=== PATIENT | female | born 1970 | race American Indian/Alaskan Native ===

== ENCOUNTER 2016-11-22 15:37 | Emergency (ER) | payer SELFPAY ==
[2016-11-22 16:20] LABS: Basophils % (Auto) 0.4 % (0.0-1.8); Eosinophils % (Auto) 3.8 % (0.0-4.3); Hematocrit 34.8 % (30.3-42.9); Hemoglobin 11.4 gm/dl (10.1-14.3); Mean Corpuscular HGB Conc 33 % (30-34); Mean Corpuscular Hemoglobin 27 pg (28-32); Mean Corpuscular Volume 81 fl (79-97); Platelet Count 236 K/mm3 (140-440); Red Blood Count 4.29 M/mm3 (3.65-5.03); Red Cell Distribution Width 15.3 % (13.2-15.2); White Blood Count 6.3 K/mm3 (4.5-11.0)
[2016-11-22 16:37] LABS: Anion Gap 17 mmol/L; Blood Urea Nitrogen 10 mg/dL (7-17); Carbon Dioxide 24 mmol/L (22-30); Chloride 99.3 mmol/L (98-107); Glucose 109 mg/dL (65-100); Potassium 3.7 mmol/L (3.6-5.0); Sodium 137 mmol/L (137-145)
--- NOTE | 2016-11-22 16:41 | Emergency Department Report ---
ED Syncope HPI - General Chief Complaint: Syncope Stated Complaint: SYNCOPE Time Seen by Provider: 11/22/16 16:38 Source: patient - History of Present Illness Timing/Prior Episodes: no prior history Precipitating Factors: Positive: none Context: activity Loss of Consciousness: dazed Current Symptoms: back to normal - Related Data Allergies/Adverse Reactions: Allergies ibuprofen [From Motrin] Allergy (Verified 11/22/16 15:46) Unknown shellfish derived Allergy (Verified 11/22/16 15:46) Unknown ED Review of Systems ROS: Stated complaint: SYNCOPE Other details as noted in HPI Comment: All other systems reviewed and negative Neurological: headache Psychiatric: anxiety ED Past Medical Hx - Past Medical History Previous Medical History?: Yes Hx GERD: Yes Hx Psychiatric Treatment: Yes (Anxiety) - Surgical History Past Surgical History?: No - Social History Smoking Status: Never Smoker Substance Use Type: None ED Physical Exam - General Limitations: No Limitations General appearance: alert, in no apparent distress - Head Head exam: Present: atraumatic - Eye Eye exam: Present: normal appearance, PERRL, EOMI - ENT ENT exam: Present: normal exam, normal orophraynx - Neck Neck exam: Present: normal inspection - Respiratory Respiratory exam: Present: normal lung sounds bilaterally - Cardiovascular Cardiovascular Exam: Present: regular rate, normal rhythm - GI/Abdominal GI/Abdominal exam: Present: soft - Back Exam Back exam: Present: normal inspection - Neurological Exam Neurological exam: Present: alert, altered, oriented X3 - Psychiatric Psychiatric exam: Present: normal affect, normal mood - Skin Skin exam: Present: warm, dry ED Course Vital Signs 11/22/16 11/22/16 11/22/16 15:40 15:58 16:00 Temperature 98.0 F Pulse Rate 82 74 Respiratory 16 12 Rate Blood Pressure 148/79 148/79 Blood Pressure 140/84 [Left] O2 Sat by Pulse 98 Oximetry 11/22/16 11/22/16 11/22/16 16:15 16:30 16:37 Temperature Pulse Rate 76 76 Respiratory 14 19 18 Rate Blood Pressure 137/84 143/83 Blood Pressure [Left] O2 Sat by Pulse 98 100 Oximetry 11/22/16 11/22/16 11/22/16 17:14 17:15 17:30 Temperature Pulse Rate 76 76 79 Respiratory 14 18 11 L Rate Blood Pressure 145/82 145/82 139/85 Blood Pressure [Left] O2 Sat by Pulse 100 100 99 Oximetry 11/22/16 17:45 Temperature Pulse Rate 71 Respiratory 12 Rate Blood Pressure 144/84 Blood Pressure [Left] O2 Sat by Pulse 100 Oximetry ED Medical Decision Making - Lab Data Result diagrams: 11/22/16 16:06 11/22/16 16:06 Critical care attestation.: If time is entered above; I have spent that time in minutes in the direct care of this critically ill patient, excluding procedure time. ED Disposition Clinical Impression: Syncope Disposition: DC-01 TO HOME OR SELFCARE Is pt being admited?: No Does the pt Need Aspirin: No Condition: Stable Instructions: Syncope (ED) Referrals: PRIMARY CARE, [Primary Care Provider] - 3-5 Days Forms: Work/School Release Form(ED)
[2016-11-22] MEDS ORDERED: NACL 0.9% 1000 ML 1,000 ML IV ONE (16:46)
--- NOTE | 2016-11-22 17:42 | Cat Scan Report ---
FINAL REPORT EXAM: CT HEAD/BRAIN WO CON HISTORY: syncope TECHNIQUE: CT head without contrast PRIORS: None. FINDINGS: No acute intra-axial or extra-axial hemorrhage is identified. There is no evidence of midline shift or mass effect. The ventricles and sulci are within normal limits. Bethea-white matter differentiation is intact. No acute parenchymal abnormalities seen. Bony calvarium is grossly intact. Visualized portions of the mastoids and paranasal sinuses are unremarkable. IMPRESSION: Negative CT head
[2016-11-22 21:53] VITALS: BP 141/87
== END 2016-11-22 22:16 | disposition home or self-care (01) ==
LOC: ED 15:37
DX: R55 Syncope and collapse (principal); K21.9 Gastro-esophageal reflux disease without esophagitis; F41.9 Anxiety disorder, unspecified; Z91.013 Allergy to seafood; Z88.6 Allergy status to analgesic agent
CPT/HCPCS: 36415; 70450; 80048; 84484; 85025; 93005; 93010; 96360; 99285; J7030

== ENCOUNTER 2017-04-10 10:34 | Emergency (ER) | payer OTHER ==
[2017-04-10 11:54] LABS: Basophils % (Auto) 0.5 % (0.0-1.8); Eosinophils % (Auto) 5.1 % (0.0-4.3); Hemoglobin 12.4 gm/dl (10.1-14.3); Mean Corpuscular HGB Conc 32 % (30-34); Mean Corpuscular Hemoglobin 26 pg (28-32); Mean Corpuscular Volume 82 fl (79-97); Platelet Count 234 K/mm3 (140-440); Red Blood Count 4.75 M/mm3 (3.65-5.03); Red Cell Distribution Width 15.5 % (13.2-15.2); White Blood Count 6.5 K/mm3 (4.5-11.0)
[2017-04-10 12:09] LABS: Alanine Aminotransferase 9 units/L (7-56); Albumin 3.9 g/dL (3.9-5); Albumin/Globulin Ratio 1.2 %; Alkaline Phosphatase 43 units/L (35-129); Anion Gap 20 mmol/L; BUN/Creatinine Ratio 14; Blood Urea Nitrogen 10 mg/dL (7-17); Calcium 8.9 mg/dL (8.4-10.2); Carbon Dioxide 23 mmol/L (22-30); Chloride 100.6 mmol/L (98-107); Glucose 122 mg/dL (65-100); Lipase 20 units/L (13-60); Potassium 4.1 mmol/L (3.6-5.0); Sodium 139 mmol/L (137-145); Total Protein 7.2 g/dL (6.3-8.2)
[2017-04-10 12:24] LABS: Bilirubin,Urine NEG (Negative); Blood,Urine NEG (Negative); Ketones,Urine NEG (Negative); Leukocyte Esterase,Urine NEG (Negative); Nitrite,Urine NEG (Negative); Protein,Urine <15 mg/dL mg/dL (Negative); Urobilinogen,Urine < 2.0 mg/dL (<2.0)
[2017-04-10 12:34] LABS: WBC,Urine < 1.0 /HPF (0.0-6.0)
[2017-04-10 13:12] VITALS: BP 117/73
[2017-04-10] MEDS ORDERED: TYLENOL PO ONE (13:20)
--- NOTE | 2017-04-10 13:22 | Emergency Department Report ---
ED General Adult HPI - General Chief complaint: Abdominal Pain Stated complaint: BODY ACHES,WEAK Time Seen by Provider: 04/10/17 12:58 Source: patient Mode of arrival: Ambulatory Limitations: No Limitations - History of Present Illness Initial comments: This is a 47-year-old female who is previously unknown to this provider, presented to the ER with myalgias, weakness, suggestive fever, congestion. Symptoms do not radiate anywhere, they're intermittent, they do not have exacerbating or relieving factors. -: Gradual Location: face, mouth, back, left, right, upper extremity, lower extremity Consistency: constant Improves with: none Worsens with: none Associated Symptoms: cough, fever/chills, loss of appetite, malaise, weakness. denies: confusion, diaphoresis, nausea/vomiting - Related Data Previous Rx's Medication Instructions Recorded Last Taken Type Acetaminophen [Tylenol Arthritis] 650 mg PO Q6HR PRN #30 tablet.er 04/10/17 Unknown Rx Benzonatate [Tessalon Perles] 100 mg PO Q8HR PRN #30 capsule 04/10/17 Unknown Rx Ondansetron [Zofran Odt] 4 mg PO Q8HR PRN #20 tab.rapdis 04/10/17 Unknown Rx Allergies Allergy/AdvReac Type Severity Reaction Status Date / Time ibuprofen [From Motrin] Allergy Unknown Verified 11/22/16 15:46 shellfish derived Allergy Unknown Verified 11/22/16 15:46 ED Review of Systems ROS: Stated complaint: BODY ACHES,WEAK Other details as noted in HPI ED Past Medical Hx - Past Medical History Previous Medical History?: Yes Hx GERD: Yes Hx Psychiatric Treatment: Yes (Anxiety) - Surgical History Past Surgical History?: No - Social History Smoking Status: Never Smoker Substance Use Type: None - Medications Home Medications: Home Medications Medication Instructions Recorded Confirmed Last Taken Type Acetaminophen [Tylenol Arthritis] 650 mg PO Q6HR PRN #30 tablet.er 04/10/17 Unknown Rx Benzonatate [Tessalon Perles] 100 mg PO Q8HR PRN #30 capsule 04/10/17 Unknown Rx Ondansetron [Zofran Odt] 4 mg PO Q8HR PRN #20 tab.rapdis 04/10/17 Unknown Rx ED Physical Exam - General Limitations: No Limitations General appearance: alert, in no apparent distress - Head Head exam: Present: atraumatic, normocephalic - Eye Eye exam: Present: normal appearance, EOMI. Absent: nystagmus - ENT ENT exam: Present: normal exam, normal orophraynx, mucous membranes moist, normal external ear exam - Neck Neck exam: Present: normal inspection, full ROM - Respiratory Respiratory exam: Present: normal lung sounds bilaterally. Absent: respiratory distress - Cardiovascular Cardiovascular Exam: Present: regular rate, normal rhythm, normal heart sounds. Absent: systolic murmur, diastolic murmur, rubs, gallop - GI/Abdominal GI/Abdominal exam: Present: soft, normal bowel sounds. Absent: distended, tenderness, guarding, rebound, rigid, pulsatile mass - Extremities Exam Extremities exam: Present: normal inspection, full ROM, normal capillary refill. Absent: pedal edema, joint swelling, calf tenderness - Back Exam Back exam: Present: normal inspection, full ROM. Absent: tenderness, CVA tenderness (R), CVA tenderness (L), muscle spasm, paraspinal tenderness, vertebral tenderness - Neurological Exam Neurological exam: Present: alert (visual acuity intact to finger counting, color perception, reading at a close distance), oriented X3, normal gait ( normal gait, normal tandem gait, negative pronator drift, negative Romberg exam. Normal heel to pin[place].), other (Extraocular movements intact. Tongue midline. No facial droop. Facial sensation intact to light touch in the V1, V2 , V3 distribution bilaterally. 5 and 5 strength in 4 extremities.. Sensation is intact to light touch in 4 extremities.). Absent: motor sensory deficit - Psychiatric Psychiatric exam: Present: normal affect, normal mood - Skin Skin exam: Present: warm, dry, intact, normal color. Absent: rash ED Course Vital Signs 04/10/17 04/10/17 11:21 13:11 Temperature 99.0 F Pulse Rate 86 82 Respiratory 18 16 Rate Blood Pressure 149/86 Blood Pressure 117/73 [Left] O2 Sat by Pulse 97 97 Oximetry ED Medical Decision Making - Lab Data Result diagrams: 04/10/17 11:38 04/10/17 11:38 Vital Signs 04/10/17 04/10/17 11:21 13:11 Temperature 99.0 F Pulse Rate 86 82 Respiratory 18 16 Rate Blood Pressure 149/86 Blood Pressure 117/73 [Left] O2 Sat by Pulse 97 97 Oximetry Lab Results 04/10/17 04/10/17 04/10/17 Range/Units 11:38 11:38 11:38 WBC 6.5 (4.5-11.0) K/mm3 RBC 4.75 (3.65-5.03) M/mm3 Hgb 12.4 (10.1-14.3) gm/dl Hct 39.0 (30.3-42.9) % MCV 82 (79-97) fl MCH 26 L (28-32) pg MCHC 32 (30-34) % RDW 15.5 H (13.2-15.2) % Plt Count 234 (140-440) K/mm3 Lymph % (Auto) 50.1 H (13.4-35.0) % [place] % (Auto) 4.7 (0.0-7.3) % Eos % (Auto) 5.1 H (0.0-4.3) % Baso % (Auto) 0.5 (0.0-1.8) % Lymph # 3.3 (1.2-5.4) K/mm3 [place] # 0.3 (0.0-0.8) K/mm3 Eos # 0.3 (0.0-0.4) K/mm3 Baso # 0.0 (0.0-0.1) K/mm3 Seg Neutrophils % 39.6 L (40.0-70.0) % Seg Neutrophils # 2.6 (1.8-7.7) K/mm3 Sodium 139 (137-145) mmol/L Potassium 4.1 (3.6-5.0) mmol/L Chloride 100.6 (98-107) mmol/L Carbon Dioxide 23 (22-30) mmol/L Anion Gap 20 mmol/L BUN 10 (7-17) mg/dL Creatinine 0.7 (0.7-1.2) mg/dL Estimated GFR > 60 ml/min BUN/Creatinine Ratio 14 % Glucose 122 H (65-100) mg/dL Calcium 8.9 (8.4-10.2) mg/dL Total Bilirubin 0.30 (0.1-1.2) mg/dL AST 12 (5-40) units/L ALT 9 (7-56) units/L Alkaline Phosphatase 43 (35-129) units/L Total Protein 7.2 (6.3-8.2) g/dL Albumin 3.9 (3.9-5) g/dL Albumin/Globulin Ratio 1.2 % Lipase 20 (13-60) units/L HCG, Qual Negative (Negative) Urine Color (Yellow) Urine Turbidity (Clear) Urine pH (5.0-7.0) Ur Specific Burns (1.003-1.030) Urine Protein (Negative) mg/dL Urine Glucose (UA) (Negative) mg/dL Urine Ketones (Negative) mg/dL Urine Blood (Negative) Urine Nitrite (Negative) Urine Bilirubin (Negative) Urine Urobilinogen (<2.0) mg/dL Ur Leukocyte Esterase (Negative) Urine WBC (Auto) (0.0-6.0) /HPF Urine RBC (Auto) (0.0-6.0) /HPF U Epithel Cells (Auto) (0-13.0) /HPF 04/10/ Range/Units 12:05 WBC (4.5-11.0) K/mm3 RBC (3.65-5.03) M/mm3 Hgb (10.1-14.3) gm/dl Hct (30.3-42.9) % MCV (79-97) fl MCH (28-32) pg MCHC (30-34) % RDW (13.2-15.2) % Plt Count (140-440) K/mm3 Lymph % (Auto) (13.4-35.0) % [place] % (Auto) (0.0-7.3) % Eos % (Auto) (0.0-4.3) % Baso % (Auto) (0.0-1.8) % Lymph # (1.2-5.4) K/mm3 [place] # (0.0-0.8) K/mm3 Eos # (0.0-0.4) K/mm3 Baso # (0.0-0.1) K/mm3 Seg Neutrophils % (40.0-70.0) % Seg Neutrophils # (1.8-7.7) K/mm3 Sodium (137-145) mmol/L Potassium (3.6-5.0) mmol/L Chloride (98-107) mmol/L Carbon Dioxide (22-30) mmol/L Anion Gap mmol/L BUN (7-17) mg/dL Creatinine (0.7-1.2) mg/dL Estimated GFR ml/min BUN/Creatinine Ratio % Glucose (65-100) mg/dL Calcium (8.4-10.2) mg/dL Total Bilirubin (0.1-1.2) mg/dL AST (5-40) units/L ALT (7-56) units/L Alkaline Phosphatase (35-129) units/L Total Protein (6.3-8.2) g/dL Albumin (3.9-5) g/dL Albumin/Globulin Ratio % Lipase (13-60) units/L HCG, Qual (Negative) Urine Color Yellow (Yellow) Urine Turbidity Clear (Clear) Urine pH 8.0 H (5.0-7.0) Ur Specific Burns 1.012 (1.003-1.030) Urine Protein <15 mg/dl (Negative) mg/dL Urine Glucose (UA) Neg (Negative) mg/dL Urine Ketones Neg (Negative) mg/dL Urine Blood Neg (Negative) Urine Nitrite Neg (Negative) Urine Bilirubin Neg (Negative) Urine Urobilinogen < 2.0 (<2.0) mg/dL Ur Leukocyte Esterase Neg (Negative) Urine WBC (Auto) < 1.0 (0.0-6.0) /HPF Urine RBC (Auto) 1.0 (0.0-6.0) /HPF U Epithel Cells (Auto) 9.0 (0-13.0) /HPF - Radiology Data Radiology results: report reviewed, image reviewed X-ray the chest is negative for acute disease - Medical Decision Making Differential diagnosis, including but not limited to: Influenza, pneumonia, influenza-like illness, urinary tract infection, sinusitis Assessment and plan: 47-year-old female with nonspecific subjective febrile illness, myalgias, arthralgias, general malaise. In the ER, the patient has reassuring vital signs, has a benign abdominal examination, has a normal neurologic examination, and is noted multiple times to be sleeping in her stretcher without difficulty. She walks without difficulty. Influenza screen is negative for type A and B, patient does not have significant cofort of medical comorbidity, and she is afebrile with reassuring vital signs in the ER. She is unfortunately allergic and intolerant of NSAIDs. She will be discharged with acetaminophen and as needed cough medication. Return precautions are reviewed. Critical care attestation.: If time is entered above; I have spent that time in minutes in the direct care of this critically ill patient, excluding procedure time. ED Disposition Clinical Impression: Influenza-like illness Disposition: DC-01 TO HOME OR SELFCARE Is pt being admited?: No Does the pt Need Aspirin: No Condition: Stable Instructions: Viral Syndrome (ED) Additional Instructions: Take the pain medication, cough medication, nausea medication as needed/ directed. Follow up with the primary care doctor within the next 7-10 days. Symptoms most likely coming from influenza-like illness/viral syndrome. This is typically a self-limiting condition. Drink plenty of fluids. Return to the ER right away with new pain, worsening pain, migration of pain, fevers, chills, lethargy, irritability, projectile vomiting, change in mental status, confusion , inability to tolerate liquid feeds. Prescriptions: Acetaminophen [Tylenol Arthritis] 650 mg PO Q6HR PRN #30 tablet.er PRN Reason: Pain Benzonatate [Tessalon Perles] 100 mg PO Q8HR PRN #30 capsule PRN Reason: Cough Ondansetron [Zofran Odt] 4 mg PO Q8HR PRN #20 tab.rapdis PRN Reason: Nausea Referrals: PRIMARY CAREMD [Primary Care Provider] - 3-5 Days VENUS BENTON MD [Staff Physician] - 3-5 Days [facility] [Provider Group] - 3-5 Days Forms: Work/School Release Form(ED)
--- NOTE | 2017-04-10 15:13 | XRay Report ---
ROUTINE CHEST, TWO VIEWS: HISTORY: Cough, fever. The trachea, heart, mediastinal contour, lung gardner and bony thorax are unremarkable. IMPRESSION: Unremarkable chest x-ray.
== END 2017-04-10 16:11 | disposition home or self-care (01) ==
LOC: ED 10:34
DX: J11.1 Influenza due to unidentified influenza virus with other respiratory manifestations (principal); M79.1 Myalgia; K21.9 Gastro-esophageal reflux disease without esophagitis; Z88.6 Allergy status to analgesic agent; Z91.013 Allergy to seafood
CPT/HCPCS: 36415; 71020; 80053; 81001; 83690; 84703; 85025; 87400; 99284

== ENCOUNTER 2017-10-11 00:16 | Emergency (ER) | payer SELFPAY ==
[2017-10-11] MEDS ORDERED: NORCO 10/325 PO ONE (02:54)
--- NOTE | 2017-10-11 03:10 | Emergency Department Report ---
ED Syncope HPI - General Chief Complaint: Syncope Stated Complaint: SYNCOPAL EPISODE Time Seen by Provider: 10/11/17 02:30 - History of Present Illness Initial Comments: Patient had an syncopal episode while she was [place] as a hazardous [place] 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 She reports that she had not eaten very much today, had not drunk very much, felt hot while she was at work, but that she was able to cope and manage until she felt a pull in her back. She has a past history of a bulging lumbar disc, but has not had any prior surgery. She has significant discomfort in her lower to mid back, and she also has a moderate headache, but she has good strength in all of her extremities, she has no chest pain, no abdominal pain, and no other acute symptoms. She did have an episode of syncope approximately a year ago, but evaluation was stable, and she was discharged home uneventfully, with no recurrences until today. Timing/Prior Episodes: single episode today, remote history Precipitating Factors: Positive: pain (lower back) Context: activity (while at work, straining to lift heavy luggage) Loss of Consciousness: unsure Current Symptoms: injury (left lower back pain, radiating into left leg). denies: chest pain, loss of bladder control, loss of bowel control, weakness - Related Data Allergies/Adverse Reactions: Allergies ibuprofen [From Motrin] Allergy (Verified 11/22/16 15:46) Unknown shellfish derived Allergy (Verified 11/22/16 15:46) Unknown Home Medications: Ambulatory Orders Acetaminophen [Tylenol Arthritis] 650 mg PO Q6HR PRN #30 tablet.er 04/10/17 Benzonatate [Tessalon Perles] 100 mg PO Q8HR PRN #30 capsule 04/10/17 Ondansetron [Zofran Odt] 4 mg PO Q8HR PRN #20 tab.rapdis 04/10/17 Cyclobenzaprine HCl [Flexeril 5 MG TAB] 5 mg PO TID #30 tab 10/11/17 HYDROcodone/APAP 7.5-325 [[place] 7.5/325] 1 each PO Q6HR PRN #20 tablet 10/11/17 predniSONE [Deltasone] 20 mg PO QDAY #10 tab 10/11/17 ED Review of Systems ROS: Stated complaint: SYNCOPAL EPISODE Other details as noted in HPI Comment: All other systems reviewed and negative Constitutional: denies: chills, diaphoresis, fever, malaise, weakness ENT: denies: ear pain, throat pain Respiratory: denies: cough, shortness of breath, wheezing Cardiovascular: syncope. denies: chest pain, palpitations Endocrine: no symptoms reported Gastrointestinal: denies: abdominal pain, nausea, vomiting Musculoskeletal: back pain (left lower back with radiculopathy left leg) Neurological: headache. denies: weakness, numbness Psychiatric: denies: anxiety, depression Hematological/Lymphatic: denies: easy bleeding, easy bruising ED Past Medical Hx - Past Medical History Previous Medical History?: Yes Hx GERD: Yes Hx Psychiatric Treatment: Yes (Anxiety) Additional medical history: syncope since middle school - Surgical History Past Surgical History?: No - Social History Smoking Status: Never Smoker Substance Use Type: None - Medications Home Medications: Home Medications Medication Instructions Recorded Confirmed Last Taken Type Acetaminophen [Tylenol Arthritis] 650 mg PO Q6HR PRN #30 tablet.er 04/10/17 Unknown Rx Benzonatate [Tessalon Perles] 100 mg PO Q8HR PRN #30 capsule 04/10/17 Unknown Rx Ondansetron [Zofran Odt] 4 mg PO Q8HR PRN #20 tab.rapdis 04/10/17 Unknown Rx Cyclobenzaprine HCl [Flexeril 5 MG 5 mg PO TID #30 tab 10/11/17 Unknown Rx TAB] HYDROcodone/APAP 7.5-325 [[place] 1 each PO Q6HR PRN #20 tablet 10/11/17 Unknown Rx 7.5/325] predniSONE [Deltasone] 20 mg PO QDAY #10 tab 10/11/17 Unknown Rx ED Physical Exam - General Limitations: No Limitations General appearance: alert, in distress (persistent left lower back discomfort) - Head Head exam: Present: atraumatic, normocephalic - Eye Eye exam: Present: PERRL - Neck Neck exam: Present: normal inspection. Absent: tenderness, meningismus - Respiratory Respiratory exam: Present: normal lung sounds bilaterally - Cardiovascular Cardiovascular Exam: Present: regular rate, normal heart sounds. Absent: systolic murmur, diastolic murmur - GI/Abdominal GI/Abdominal exam: Present: soft. Absent: tenderness, guarding, rebound - Rectal Rectal exam: Present: deferred - Extremities Exam Extremities exam: Present: normal inspection. Absent: tenderness - Back Exam Back exam: Present: tenderness (left paralumbar soft tissue), paraspinal tenderness (left paralumbar). Absent: CVA tenderness (R), CVA tenderness (L), vertebral tenderness - Neurological Exam Neurological exam: Present: alert, oriented X3, CN II-XII intact. Absent: motor sensory deficit - Psychiatric Psychiatric exam: Present: normal affect, normal mood - Skin Skin exam: Present: warm, dry ED Course Vital Signs 10/11/17 10/11/17 10/11/17 00:44 01:00 02:00 Temperature 97.9 F Pulse Rate 77 77 76 Respiratory 15 18 18 Rate Blood Pressure 136/84 127/81 125/86 Blood Pressure 136/84 [Left] O2 Sat by Pulse 99 99 99 Oximetry ED Medical Decision Making - EKG Data -: EKG Interpreted by Me EKG shows normal: sinus rhythm, axis (normal QRS axis of 29), intervals, QRS complexes (normal QRS complexes), ST-T waves (nonspecific ST-T wave changes) - EKG Data When compared to previous EKG there are: no significant change - Radiology Data interpreted by me: Chest x-ray shows no acute cardiopulmonary abnormality, with clear lung gardner bilaterally, heart size is unremarkable, no pulmonary vascular congestion - Medical Decision Making Patient has had a syncopal episode as a result of an acute spasm of pain while she was physically exertional at her job. Furthermore, this is compounded by relative dehydration, and not having eaten well during the day. EKG is unremarkable, shows no cardiac irregularities, no rhythm irregularities, and no changes from prior tracing from 11/22/2016. She has considerable discomfort in her left lower back, with left radicular symptoms into her left leg. She also has a headache, but this is global, there are no acute neurologic findings. Pain episode is likely a proximate cause of patient's reflex or a vasovagal syncopal episode, which has resolved. She'll be treated symptomatically with rest, analgesics, and given sufficient time off from work in order to cover. - Differential Diagnosis syncopal episode, vasovagal reaction, cardiac syncope, pain related Critical Care Time: No Critical care attestation.: If time is entered above; I have spent that time in minutes in the direct care of this critically ill patient, excluding procedure time. ED Disposition Clinical Impression: Low back pain, Left lumbar radiculopathy Syncopal episodes Qualifiers: Syncope type: vasovagal syncope Qualified Code(s): R55 - Syncope and collapse Disposition: DC- TO HOME OR SELFCARE Is pt being admited?: No Does the pt Need Aspirin: No Condition: Stable Instructions: Syncope (ED), Acute Low Back Pain (ED), Lumbar Radiculopathy (ED) Additional Instructions: Unit fainted today as a result of exacerbation of low back pain, and you're probably inflamed or disc in your lower back. We're treating this with rest, analgesics with hydrocodone, and muscle relaxants , Flexeril. We have released her from work for the next 5 days, continue should have repeat examination by her doctor within that time to see how you're doing, and to determine additional needs. Light duty will be recommended once she returned to work for the next week or 2. Prescriptions: Cyclobenzaprine HCl [Flexeril 5 MG TAB] 5 mg PO TID #30 tab HYDROcodone/APAP 7.5-325 [[place] 7.5/325] 1 each PO Q6HR PRN #20 tablet PRN Reason: Pain predniSONE [Deltasone] 20 mg PO QDAY #10 tab Referrals: NAWAF ORTEGA MD [Primary Care Provider] - 3-5 Days Forms: Work/School Release Form(ED) Time of Disposition: 04:10
[2017-10-11 03:19] LABS: Basophils # (Auto) 0.1 K/mm3 (0.0-0.1); Basophils % (Auto) 1.1 % (0.0-1.8); Eosinophils # (Auto) 0.3 K/mm3 (0.0-0.4); Eosinophils % (Auto) 3.5 % (0.0-4.3); Hematocrit 34.4 % (30.3-42.9); Hemoglobin 11.7 gm/dl (10.1-14.3); Lymphocytes # (Auto) 3.6 K/mm3 (1.2-5.4); Lymphocytes % (Auto) 44.4 % (13.4-35.0); Mean Corpuscular HGB Conc 34 % (30-34); Mean Corpuscular Hemoglobin 27 pg (28-32); Mean Corpuscular Volume 79 fl (79-97); Monocytes # (Auto) 0.6 K/mm3 (0.0-0.8); Monocytes % (Auto) 7.6 % (0.0-7.3); Platelet Count 273 K/mm3 (140-440); Red Blood Count 4.33 M/mm3 (3.65-5.03); Red Cell Distribution Width 15.4 % (13.2-15.2)
[2017-10-11 04:02] LABS: BUN/Creatinine Ratio 14; Blood Urea Nitrogen 11 mg/dL (7-17); Calcium 9.4 mg/dL (8.4-10.2); Hemolysis Index 0
[2017-10-11 04:15] VITALS: BP 144/84
[2017-10-11] MEDS ORDERED: DELTASONE PO ONE (04:18)
--- NOTE | 2017-10-13 14:26 | XRay Report ---
FINAL REPORT EXAM: XR CHEST 1V AP HISTORY: chest pain, syncope TECHNIQUE: AP portable view(s) of the chest obtained. PRIORS: None. FINDINGS: No mediastinal shift. Cardiac silhouette is not enlarged. No pneumothorax or effusion. Linear bibasilar atelectasis/scarring. No acute skeletal finding. IMPRESSION: No acute pulmonary finding.
== END 2017-10-11 05:00 | disposition home or self-care (01) ==
LOC: ED 00:16
DX: M54.16 Radiculopathy, lumbar region (principal); M54.5 Low back pain; R55 Syncope and collapse; K21.9 Gastro-esophageal reflux disease without esophagitis
CPT/HCPCS: 36415; 71045; 80048; 85025; 93005; 93010; 99284; J7512

== ENCOUNTER 2018-01-02 20:50 | Emergency (ER) | payer SELFPAY ==
[2018-01-03] MEDS ORDERED: TYLENOL #3 PO ONE (00:34)
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
[2018-01-03 03:38] VITALS: BP 158/90
== END 2018-01-03 03:10 | disposition home or self-care (01) ==
LOC: ED 20:50
DX: S39.012A Strain of muscle, fascia and tendon of lower back, initial encounter (principal); S16.1XXA Strain of muscle, fascia and tendon at neck level, initial encounter; K21.9 Gastro-esophageal reflux disease without esophagitis; F41.9 Anxiety disorder, unspecified; Z91.013 Allergy to seafood; Z88.6 Allergy status to analgesic agent; V43.62XA Car passenger injured in collision with other type car in traffic accident, initial encounter; Y93.89 Activity, other specified; Y99.8 Other external cause status; Y92.410 Unspecified street and highway as the place of occurrence of the external cause
CPT/HCPCS: 72040; 72100; 99283

== ENCOUNTER 2021-07-11 18:41 | Emergency (ER) | payer SELFPAY ==
[2021-07-11 19:34] VITALS: BP 128/84
[2021-07-11 21:07] LABS: Mucus,Urine FEW /HPF
[2021-07-11 21:09] LABS: HCG Qualitative,Urine Negative (Negative)
[2021-07-11 21:12] LABS: Color,Urine Yellow (Yellow)
[2021-07-11 21:13] LABS: Bilirubin,Urine Negative (Negative); Blood,Urine Small (Negative); Protein,Urine <15 mg/dL mg/dL (Negative); Urobilinogen,Urine < 2.0 mg/dL (<2.0)
--- NOTE | 2021-07-11 21:15 | Emergency Department Report ---
ED Female HPI - General Chief complaint: Abdominal Pain Stated complaint: RT SIDE/PELVIC PAIN Source: patient Mode of arrival: Ambulatory Limitations: No Limitations - History of Present Illness Initial comments: 51-year-old female presents to the ED complaining low back pain radiating to the pelvic area with urinary frequency ,dysuria and urgency. Patient is alert and oriented x3. No acute distress noted .No ill appearance noted. Patient denies any nausea /vomiting or diarrhea. Patient states taking Azo across the counter without any relief. Patient states pain is currently 8 out of 10 at present. Severity scale (0 -10): 8 Associated Symptoms: denies other symptoms - Related Data Previous Rx's Medication Instructions Recorded Last Taken Type Acetaminophen [Tylenol Arthritis] 650 mg PO Q6HR PRN #30 tablet.er 04/10/17 Unknown Rx Benzonatate [Tessalon Perles] 100 mg PO Q8HR PRN #30 capsule 04/10/17 Unknown Rx Ondansetron [Zofran Odt] 4 mg PO Q8HR PRN #20 tab.rapdis 04/10/17 Unknown Rx Cyclobenzaprine HCl [Flexeril 5 MG 5 mg PO TID #30 tab 10/11/17 Unknown Rx TAB] HYDROcodone/APAP 7.5-325 [[place] 1 each PO Q6HR PRN #20 tablet 10/11/17 Unknown Rx 7.5/325] predniSONE [Deltasone] 20 mg PO QDAY #10 tab 10/11/17 Unknown Rx Acetaminophen [Tylenol Extra 1,000 mg PO QID PRN #60 tablet 01/03/18 Unknown Rx Strength] Cyclobenzaprine [Flexeril] 10 mg PO BID PRN #20 tablet 01/03/18 Unknown Rx Hyoscyamine Subl [Levsin Sl 0.125 0.125 mg SL Q6HR PRN 4 Days #20 tab 07/11/21 Unknown Rx TAB] Sulfamethoxazole/Trimethoprim 1 each PO BID 10 Days #20 tab 07/11/21 Unknown Rx [Bactrim DS TAB] Allergies Allergy/AdvReac Type Severity Reaction Status Date / Time ibuprofen [From Motrin] Allergy Unknown Verified 11/22/16 15:46 shellfish derived Allergy Unknown Verified 11/22/16 15:46 ED Review of Systems ROS: Stated complaint: RT SIDE/PELVIC PAIN Other details as noted in HPI Constitutional: denies: chills, fever Eyes: denies: eye pain, eye discharge, vision change ENT: denies: ear pain, throat pain Respiratory: denies: cough, shortness of breath, wheezing Cardiovascular: denies: chest pain, palpitations Endocrine: no symptoms reported Gastrointestinal: denies: abdominal pain, nausea, diarrhea Genitourinary: urgency, dysuria. denies: discharge Musculoskeletal: denies: back pain, joint swelling, arthralgia Skin: denies: rash, lesions Neurological: denies: headache, weakness, paresthesias Psychiatric: denies: anxiety, depression Hematological/Lymphatic: denies: easy bleeding, easy bruising ED Past Medical Hx - Past Medical History Previous Medical History?: Yes Hx GERD: Yes Hx Psychiatric Treatment: Yes (Anxiety) Additional medical history: syncope since middle school. Fibroids - Surgical History Past Surgical History?: No - Social History Smoking Status: Unknown if ever smoked - Medications Home Medications: Home Medications Medication Instructions Recorded Confirmed Last Taken Type Acetaminophen [Tylenol Arthritis] 650 mg PO Q6HR PRN #30 tablet.er 04/10/17 Unknown Rx Benzonatate [Tessalon Perles] 100 mg PO Q8HR PRN #30 capsule 04/10/17 Unknown Rx Ondansetron [Zofran Odt] 4 mg PO Q8HR PRN #20 tab.rapdis 04/10/17 Unknown Rx Cyclobenzaprine HCl [Flexeril 5 MG 5 mg PO TID #30 tab 10/11/17 Unknown Rx TAB] HYDROcodone/APAP 7.5-325 [[place] 1 each PO Q6HR PRN #20 tablet 10/11/17 Unknown Rx 7.5/325] predniSONE [Deltasone] 20 mg PO QDAY #10 tab 10/11/17 Unknown Rx Acetaminophen [Tylenol Extra 1,000 mg PO QID PRN #60 tablet 01/03/18 Unknown Rx Strength] Cyclobenzaprine [Flexeril] 10 mg PO BID PRN #20 tablet 01/03/18 Unknown Rx Hyoscyamine Subl [Levsin Sl 0.125 0.125 mg SL Q6HR PRN 4 Days #20 tab 07/11/21 Unknown Rx TAB] Sulfamethoxazole/Trimethoprim 1 each PO BID 10 Days #20 tab 07/11/21 Unknown Rx [Bactrim DS TAB] ED Physical Exam - General Limitations: No Limitations General appearance: alert, in no apparent distress - Head Head exam: Present: atraumatic, normocephalic - Eye Eye exam: Present: normal appearance - ENT ENT exam: Present: mucous membranes moist - Neck Neck exam: Present: normal inspection - Respiratory Respiratory exam: Present: normal lung sounds bilaterally. Absent: respiratory distress - Cardiovascular Cardiovascular Exam: Present: regular rate, normal rhythm. Absent: systolic murmur, diastolic murmur, rubs, gallop - GI/Abdominal GI/Abdominal exam: Present: soft, normal bowel sounds - Extremities Exam Extremities exam: Present: normal inspection - Back Exam Back exam: Present: normal inspection - Neurological Exam Neurological exam: Present: alert, oriented X3 - Psychiatric Psychiatric exam: Present: normal affect, normal mood - Skin Skin exam: Present: warm, dry, intact, normal color. Absent: rash ED Course Vital Signs 07/11/21 07/11/21 19:29 21:50 Temperature 98.8 F Pulse Rate 74 Respiratory 16 18 Rate Blood Pressure 128/84 [Right] O2 Sat by Pulse 99 Oximetry ED Medical Decision Making - Lab Data Result diagrams: 07/11/21 21:42 07/11/21 21:42 - Radiology Data [facility] [address] [place] [address] Cat Scan Report Signed Patient: KAREEN BARCLAY MR#: [id number] : 1970 Acct:[id number] Age/Sex: 51 / F ADM Date: 07/11/21 Loc: ED Attending Dr: Ordering Physician: BIENVENIDO HONEYCUTT Date of Service: 07/11/21 Procedure(s): CT abdomen pelvis wo con Accession Number(s): [id number] cc: BIENVENIDO HONEYCUTT CT ABDOMEN AND PELVIS WITHOUT CONTRAST INDICATION / CLINICAL INFORMATION: Pt complains of "Generalized" abdominal pain. TECHNIQUE: Axial CT images were obtained through the abdomen and pelvis without IV contrast. All CT scans at this location are performed using CT dose reduction for ALARA by means of automated exposure control. COMPARISON: None available. FINDINGS: LOWER CHEST: No significant abnormality LIVER: No significant abnormality GALLBLADDER/BILIARY TREE: No significant abnormality PANCREAS: No significant abnormality SPLEEN: No significant abnormality ADRENALS: No significant abnormality KIDNEYS / URETER: No significant abnormality URINARY BLADDER: Bladder is partially decompressed, though grossly unremarkable. REPRODUCTIVE ORGANS: The uterus is enlarged and heterogeneous, most consistent with fibroid disease. No suspicious adnexal mass. STOMACH / BOWEL: Small hiatal hernia. Small bowel is normal in caliber. The colon is unremarkable. The appendix is normal in caliber. LYMPH NODES: No significant adenopathy. VASCULATURE: No significant abnormality. OTHER: No free air, free fluid, or focal fluid collection is identified. Small fat-containing left internal hernia. SKELETAL SYSTEM: No acute osseous findings. IMPRESSION: 1. No acute abnormality of the abdomen or pelvis. 2. Enlarged fibroid uterus. 3. Other incidental findings as above. Signer Name: Rosa M Owens MD Signed: 07/11/2021 10:21 PM Workstation Name: [id number] Transcribed By: TASHIA Dictated By: ROSA M OWENS MD Electronically Authenticated By: ROSA M OWENS MD Signed Date/Time: 07/11/212220 - Medical Decision Making 51-year-old female presents to the ED complaining low back pain radiating to the pelvic area with urinary frequency ,dysuria and urgency. Patient is alert and oriented x3. No acute distress noted .No ill appearance noted. Patient denies any nausea /vomiting or diarrhea. Patient states taking Azo across the counter without any relief. Patient states pain is currently 8 out of 10 at present. Urinalysis showed moderate hematuria. CT of the abdomen pelvis ordered shows uterine fibroid. Patient will be treated based on symptoms for acute urinary tract infection and to follow-up with [facility]. Rechecked the patient is resting quietly quietly and comfortable and feeling better. I discussed the results of diagnostic study, my clinical impression and the plan for further treatment with the patient. Patient agrees with plan and discharge at this present time. All question addressed. I have given the patient instruction regarding a diagnosis ,expectation ,follow- up and return precaution. I explained to the patient that emergent condition may arise and to return to the ED for new worsen and any new persisting condition. I have explained the importance of following up with the primary care physician or referral physician listed below has instructed. The patient verbalized understanding of discharge instruction. Critical care attestation.: If time is entered above; I have spent that time in minutes in the direct care of this critically ill patient, excluding procedure time. ED Disposition Clinical Impression: Acute UTI (urinary tract infection), Fibroid Disposition: HOME / SELF CARE / HOMELESS Is pt being admited?: No Does the pt Need Aspirin: No Condition: Stable Instructions: Abdominal Pain (ED), Antibiotic Medicine, Adult, [id number], Urinary Tract Infection, Adult, Uterine Fibroids, [id number] Additional Instructions: Follow-up with primary care doctor Drink plenty of fluids Return to ED for any worsening symptom Prescriptions: Sulfamethoxazole/Trimethoprim [Bactrim DS TAB] 1 each PO BID 10 Days #20 tab Hyoscyamine Subl [Levsin Sl 0.125 TAB] 0.125 mg SL Q6HR PRN 4 Days #20 tab PRN Reason: Muscle Spasm Referrals: PRIMARY CARE, [Primary Care Provider] - 3-5 Days [facility] [Provider Group] - 3-5 Days Forms: Work/School Release Form(ED)
[2021-07-11] MEDS ORDERED: SODIUM CHLORIDE 0.9% 1000 ML 1,000 ML IV ONE (21:30)
[2021-07-11] MEDS ORDERED: MORPHINE 2 MG/1 ML INJ IV ONE (21:30)
[2021-07-11 21:58] LABS: Basophils # (Auto) 0.1 K/mm3 (0.0-0.1); Basophils % (Auto) 0.8 % (0.0-1.8); Eosinophils # (Auto) 0.3 K/mm3 (0.0-0.4); Eosinophils % (Auto) 3.6 % (0.0-4.3); Hematocrit 38.4 % (30.3-42.9); Hemoglobin 11.8 gm/dl (10.1-14.3); Lymphocytes # (Auto) 3.8 K/mm3 (1.2-5.4); Lymphocytes % (Auto) 49.2 % (13.4-35.0); Mean Corpuscular HGB Conc 31 % (30-34); Mean Corpuscular Volume 78 fl (79-97); Monocytes # (Auto) 0.5 K/mm3 (0.0-0.8); Monocytes % (Auto) 6.9 % (0.0-7.3); Platelet Count 324 K/mm3 (140-440); Red Blood Count 4.92 M/mm3 (3.65-5.03); Red Cell Distribution Width 16.7 % (13.2-15.2)
[2021-07-11 22:20] LABS: Alanine Aminotransferase 6 units/L (7-56); Albumin 4.3 g/dL (3.9-5); BUN/Creatinine Ratio 11; Blood Urea Nitrogen 9 mg/dL (7-17); Hemolysis Index 27
--- NOTE | 2021-07-11 22:26 | Cat Scan Report ---
CT ABDOMEN AND PELVIS WITHOUT CONTRAST INDICATION / CLINICAL INFORMATION: Pt complains of "Generalized" abdominal pain. TECHNIQUE: Axial CT images were obtained through the abdomen and pelvis without IV contrast. All CT scans at this location are performed using CT dose reduction for ALARA by means of automated exposure control. COMPARISON: None available. FINDINGS: LOWER CHEST: No significant abnormality LIVER: No significant abnormality GALLBLADDER/BILIARY TREE: No significant abnormality PANCREAS: No significant abnormality SPLEEN: No significant abnormality ADRENALS: No significant abnormality KIDNEYS / URETER: No significant abnormality URINARY BLADDER: Bladder is partially decompressed, though grossly unremarkable. REPRODUCTIVE ORGANS: The uterus is enlarged and heterogeneous, most consistent with fibroid disease. No suspicious adnexal mass. STOMACH / BOWEL: Small hiatal hernia. Small bowel is normal in caliber. The colon is unremarkable. Th e appendix is normal in caliber. LYMPH NODES: No significant adenopathy. VASCULATURE: No significant abnormality. OTHER: No free air, free fluid, or focal fluid collection is identified. Small fat-containing left in ternal hernia. SKELETAL SYSTEM: No acute osseous findings. IMPRESSION: 1. No acute abnormality of the abdomen or pelvis. 2. Enlarged fibroid uterus. 3. Other incidental findings as above. Signer Name: Dereck Owens MD Signed: 07/11/2021 10:21 PM Workstation Name: [id number]
== END 2021-07-11 23:19 | disposition home or self-care (01) ==
LOC: ED 18:41
DX: N39.0 Urinary tract infection, site not specified (principal); Z91.013 Allergy to seafood; Z88.6 Allergy status to analgesic agent; F41.9 Anxiety disorder, unspecified
CPT/HCPCS: 36415; 74176; 80053; 81001; 81025; 85025; 96361; 96374; 99284; J2270; J7030; Q0162